=== PATIENT | male | born 1955 | race Caucasian/White ===

== ENCOUNTER 2019-09-04 16:15 | Emergency (ER) | payer BC, OTHER ==
[2019-09-04] MEDS ORDERED: IBUPROFEN 800 MG TABLET PO ONE (17:37)
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
[2019-09-04 19:29] VITALS: BP 149/88
== END 2019-09-04 19:27 | disposition home or self-care (01) ==
LOC: ER 16:15
DX: S16.1XXA Strain of muscle, fascia and tendon at neck level, initial encounter (principal); S39.012A Strain of muscle, fascia and tendon of lower back, initial encounter; M54.6 Pain in thoracic spine; V43.52XA Car driver injured in collision with other type car in traffic accident, initial encounter
CPT/HCPCS: 72050; 72070; 72110; 99283

== ENCOUNTER 2020-01-10 14:55 | Observation (INO) | payer BC, MEDICARE ==
[~2020-01-10 14:55] MED LIST: DEXAMETHASONE SOD PHOSPHATE INJ 4 MG/1 ML VIAL ONE; GLYCOPYRROLATE 1 MG/5 ML VIAL ONE; KETOROLAC TROMETHAMINE 60 MG/2 ML SDV ONE; LIDOCAINE 2% INJ-PF (20 MG/ML) 2 ML AMPUL ONE; NEOSTIGMINE METHYLSULFATE 10 MG/10 ML VIAL ONE; ONDANSETRON HCL INJ/PF 4 MG/2 ML SDV ONE; ROCURONIUM BROMIDE INJ 50 MG/5 ML VIAL IV ONE; SUCCINYLCHOLINE CHLORIDE INJ 200 MG/10 ML VIAL ONE
--- NOTE | 2020-01-10 15:32 | ER Document Report ---
ED Medical Screen (RME) - General Chief Complaint: Abdominal Pain Stated Complaint: ABDOMINAL PAIN Time Seen by Provider: 01/10/20 15:23 Primary Care Provider: GAY MENDOZA [Primary Care Provider] - Follow up as needed Mode of Arrival: Ambulatory Information source: Patient Notes: 64-year-old male presented to ED for complaint of nausea when he woke up this morning. He states he then rolled over into bed and his whole right side of his abdomen is extremely painful. He states he has not vomited but is felt like he needed to all day. He states he did eat half a bagel for breakfast and have a bowl of cereal about 1:00 but is not been able to eat anything else. He states his only past medical history is a knee scope and it was benign. He is alert oriented respirations regular nonlabored speaking in full sentences. I have greeted and performed a rapid initial assessment of this patient. A comprehensive ED assessment and evaluation of the patient, analysis of test results and completion of medical decision making process will be conducted by an additional ED providers. - Related Data Allergies/Adverse Reactions: No Known Allergies Allergy (Verified 01/10/20 15:21) Past Medical History - Past Medical History Cardiac Medical History: Reports: Hx Hypertension Physical Exam - Vital signs Vitals: Temp Pulse Resp BP Pulse Ox 99.5 F 85 20 136/80 H 97 01/10/20 15:08 01/10/20 15:08 01/10/20 15:08 01/10/20 15:08 01/10/20 15:08 Course - Vital Signs Vital signs: Temp Pulse Resp BP Pulse Ox 99.5 F 85 20 136/80 H 97 01/10/20 15:17 01/10/20 15:08 01/10/20 15:08 01/10/20 15:08 01/10/20 15:08 Doctor's Discharge - Discharge Referrals: GAY MENDOZA [Primary Care Provider] - Follow up as needed
[2020-01-10 15:53] LABS: ABSOLUTE EOSINOPHILS # (AUTO) 0.1 10^3/uL (0.0-0.6); ABSOLUTE LYMPHOCYTES (AUTO) 2.1 10^3/uL (0.5-4.7); ABSOLUTE MONOCYTES (AUTO) 0.8 10^3/uL (0.1-1.4); ABSOLUTE NEUT (AUTO) 7.2 10^3/uL (1.7-8.2); BASOPHILS % (AUTO) 0.2 % (0-2); EOSINOPHILS % (AUTO) 0.9 % (0-6); HEMATOCRIT 48.3 % (37.9-51.0); HEMOGLOBIN 16.7 g/dL (13.5-17.0); LYMPHOCYTES % (AUTO) 20.5 % (13-45); MEAN CORPUSCULAR HEMOGLOBIN 29.3 pg (27.0-33.4); MEAN CORPUSCULAR HGB CONC 34.7 g/dL (32.0-36.0); MEAN CORPUSCULAR VOLUME 84 fl (80-97); MONOCYTES % (AUTO) 7.6 % (3-13); PLATELET COUNT 206 10^3/uL (150-450); RED BLOOD COUNT 5.72 10^6/uL (4.35-5.55); RED CELL DISTRIBUTION WIDTH 13.8 % (11.5-14.0); SEGMENTED NEUTROPHILS % (AUTO) 70.8 % (42-78); TOTAL CELLS COUNTED % (AUTO) 100 %; WHITE BLOOD COUNT 10.2 10^3/uL (4.0-10.5)
[2020-01-10 16:14] LABS: ALBUMIN 4.7 g/dL (3.5-5.0); ALKALINE PHOSPHATASE 78 U/L (38-126); ANION GAP 8 (5-19); ASPARTATE AMINO TRANSFERASE 30 U/L (17-59); BILIRUBIN,TOTAL 0.6 mg/dL (0.2-1.3); BLOOD UREA NITROGEN 17 mg/dL (7-20); CARBON DIOXIDE 29 mmol/L (22-30); CHLORIDE 101 mmol/L (98-107); GLUCOSE 135 mg/dL (75-110); POTASSIUM 3.9 mmol/L (3.6-5.0)
[2020-01-10 16:23] LABS: APPEARANCE,URINE CLEAR; BILIRUBIN,URINE NEGATIVE (NEGATIVE); COLOR,URINE YELLOW; GLUCOSE, URINE NEGATIVE (NEGATIVE); KETONES,URINE NEGATIVE (NEGATIVE); LEUKOCYTE ESTERASE,URINE TRACE (NEGATIVE); NITRITE,URINE NEGATIVE (NEGATIVE); PROTEIN,URINE NEGATIVE (NEGATIVE); URINE SPECIFIC GRAVITY 1.008; UROBILINOGEN,URINE NEGATIVE mg/dL (<2.0)
--- NOTE | 2020-01-10 17:04 | RADIOLOGY REPORT (SQ) ---
EXAM DESCRIPTION: CT ABD/PELVIS WITH IV ONLY IMAGES COMPLETED DATE/TIME: 01/10/2020 4:43 pm REASON FOR STUDY: Lower and upper abdominal pain COMPARISON: None. TECHNIQUE: CT scan of the abdomen and pelvis performed using helical scanning technique with dynamic intravenous contrast injection. No oral contrast. Images reviewed with lung, soft tissue, and bone windows. Reconstructed coronal and sagittal MPR images reviewed. Delayed images for evaluation of the urinary system also acquired. All images stored on PACS. All CT scanners at this facility use dose modulation, iterative reconstruction, and/or weight based d osing when appropriate to reduce radiation dose to as low as reasonably achievable (ALARA). [facility]: Dose Right [facility]: CareDose [facility]: Dose Right [facility]: Teradose 4D [facility]: [place] CONTRAST TYPE AND DOSE: 99 mL Omnipaque 350- low osmolar. RENAL FUNCTION: GFR > 60. RADIATION DOSE: CT Rad equipment meets quality standard of care and radiation dose reduction techniq ues were employed. CTDIvol: 17.1 - 19.7 mGy. DLP: 2066 mGy-cm. LIMITATIONS: None. FINDINGS: LOWER CHEST: No acute findings. LIVER: There are several hypodense lesions scattered throughout segments 2 and 4 of the liver that me asure up to 13 mm in maximum diameter and likely represent cysts. The portal veins are patent. Ther e is no solid hepatic mass. SPLEEN: No splenomegaly or splenic mass. PANCREAS: No acute abnormality of the pancreas. GALLBLADDER: No abnormality that is apparent on CT. ADRENAL GLANDS: No mass or asymmetry. RIGHT KIDNEY AND URETER: No solid mass, hydronephrosis, nephrolithiasis, hydroureter or ureterolithia sis. LEFT KIDNEY AND URETER: 2.6 x 1.9 cm partially exophytic cyst in the lower pole of the kidney. There are several other subcentimeter hypodense lesions in the cortex of the lower pole that are considere d too small to characterize. There is no hydronephrosis, nephrolithiasis, hydroureter or ureterolith iasis. AORTA AND VESSELS: No aneurysm or dissection of the abdominal aorta. Variant accessory right inferio r hepatic vein. RETROPERITONEUM: No retroperitoneal adenopathy, hemorrhage or mass. BOWEL AND PERITONEAL CAVITY: No bowel obstruction, bowel wall thickening or pericolonic/ perienteric inflammation. No mesenteric adenopathy, free intraperitoneal fluid or mesenteric/ omental inflammati on. APPENDIX: The appendix is dilated measuring 12 mm in diameter. The wall of the appendix is thickened and there is mild stranding of the periappendiceal fat. PELVIS: The prostate gland is enlarged. ABDOMINAL WALL: Fat containing right inguinal hernia. BONES: No fracture or osseous lesion. OTHER: No other finding. IMPRESSION: 1. Dilated thick-walled appendix with mild stranding of the periappendiceal fat concerni ng for an acute early appendicitis. 2. Prostatomegaly. 3. Other secondary nonemergent findings as detailed above. TECHNICAL DOCUMENTATION: JOB ID: [id number] Quality ID # [id number]: Final reports with documentation of one or more dose reduction techniques (e.g., Au tomated exposure control, adjustment of the mA and/or kV according to patient size, use of iterative reconstruction technique) 2010 [employer]- All Rights Reserved Reading location - IP/workstation name: [email or web address]
--- NOTE | 2020-01-10 17:20 | ER Document Report ---
ED General - General Chief Complaint: Abdominal Pain Stated Complaint: ABDOMINAL PAIN Time Seen by Provider: 01/10/20 15:23 Primary Care Provider: GAY MENDOZA [Primary Care Provider] - Follow up as needed Mode of Arrival: Ambulatory Information source: Patient - [facility] Notes: Patient complains of right lower quadrant abdominal pain. He states that it started this morning. He states it progressively worsened throughout the day. He states it is sharp and moderate to severe in intensity. It is constant. Is worse with movement and better with rest. No significant radiation of the pain. No problems with urination or bowel movements. He has had some nausea. He is also had decreased appetite. He states he last ate at approximately 12:30 PM. - Related Data Allergies/Adverse Reactions: No Known Allergies Allergy (Verified 01/10/20 15:21) Past Medical History - General Information source: Patient - Social History Smoking Status: Never Smoker Frequency of alcohol use: None Drug Abuse: None Family History: Reviewed & Not Pertinent Patient has homicidal ideation: No - Past Medical History Cardiac Medical History: Reports: Hx Hypertension Review of Systems - Review of Systems Constitutional: denies: Chills, Fever Cardiovascular: denies: Chest pain, Palpitations Respiratory: denies: Cough, Short of breath -: Yes All other systems reviewed and negative Physical Exam - Vital signs Vitals: Temp Pulse Resp BP Pulse Ox 99.5 F 85 20 136/80 H 97 01/10/20 15:08 01/10/20 15:08 01/10/20 15:08 01/10/20 15:08 01/10/20 15:08 Interpretation: Normal - General General appearance: Appears well, Alert - HEENT Head: Normocephalic, Atraumatic Eyes: Normal Pupils: PERRL - Respiratory Respiratory status: No respiratory distress Chest status: Nontender Breath sounds: Normal Chest palpation: Normal - Cardiovascular Rhythm: Regular Heart sounds: Normal auscultation Murmur: No - Abdominal Inspection: Normal Distension: No distension Bowel sounds: Normal Tenderness: Tender - Patient has significant right lower quadrant tenderness to palpation with rebound and guarding. Organomegaly: No organomegaly - Back Back: Normal, Nontender - Extremities General upper extremity: Normal inspection, Nontender, Normal color, Normal ROM, Normal temperature General lower extremity: Normal inspection, Nontender, Normal color, Normal ROM, Normal temperature, Normal weight bearing. No: Shayy's sign - Neurological Neuro grossly intact: Yes Cognition: Normal Orientation: AAOx4 Narinder Coma Scale Eye Opening: Spontaneous Hope Coma Scale Verbal: Oriented Hope Coma Scale Motor: Obeys Commands Narinder Coma Scale Total: 15 Speech: Normal Motor strength normal: LUE, RUE, LLE, RLE Sensory: Normal - Psychological Associated symptoms: Normal affect, Normal mood - Skin Skin Temperature: Warm Skin Moisture: Dry Skin Color: Normal Course - Re-evaluation Re-evalutation: 01/10/20 17:20 Patient presents with right lower quadrant abdominal pain. CT shows questionable early appendicitis. Labs show an elevated white blood cell count. Exam is consistent with an appendicitis as well. I have spoke with the surgeon Dr. Naylor who is asked me to start antibiotics and he will see the patient when he is done with his present case. - Vital Signs Vital signs: Temp Pulse Resp BP Pulse Ox 99.5 F 85 20 136/80 H 97 01/10/20 15:17 01/10/20 15:08 01/10/20 15:08 01/10/20 15:08 01/10/20 15:08 - Laboratory Result Diagrams: 01/10/20 15:34 01/10/20 15:34 Laboratory results interpreted by me: 01/10/20 01/10/20 01/10/20 15:34 15:34 15:44 RBC 5.72 H Creatinine 1.27 H Est GFR (MDRD) Non-Af 57 L Glucose 135 H Ur Leukocyte Esterase TRACE H Urine Ascorbic Acid 20 H - Diagnostic Test Radiology reviewed: Image reviewed, Reports reviewed Discharge - Discharge Clinical Impression: Acute appendicitis Qualifiers: Acute appendicitis type: with localized peritonitis Appendicitis gangrene presence: without gangrene Appendicitis perforation presence: without perforation Appendicitis abscess presence: without abscess Qualified Code(s): K35.30 - Acute appendicitis with localized peritonitis, without perforation or gangrene Condition: Fair Disposition: ADMITTED INPATIENT Admitting Provider: Surgicalist Unit Admitted: OR Referrals: LOCALMD,NO [Primary Care Provider] - Follow up as needed
--- NOTE | 2020-01-10 17:57 | RADIOLOGY REPORT (SQ) ---
EXAM DESCRIPTION: CHEST 2 VIEWS IMAGES COMPLETED DATE/TIME: 01/10/2020 5:28 pm REASON FOR STUDY: pre op COMPARISON: None. EXAM PARAMETERS: NUMBER OF VIEWS: two views TECHNIQUE: Digital Frontal and Lateral radiographic views of the chest acquired. RADIATION DOSE: NA LIMITATIONS: none FINDINGS: LUNGS AND PLEURA: No opacities, masses or pneumothorax. No pleural effusion. MEDIASTINUM AND HILAR STRUCTURES: No masses or contour abnormalities. HEART AND VASCULAR STRUCTURES: Heart normal size. No evidence for failure. BONES: No acute findings. HARDWARE: None in the chest. OTHER: No other significant finding. IMPRESSION: 1. NO ACUTE RADIOGRAPHIC FINDING IN THE CHEST. TECHNICAL DOCUMENTATION: JOB ID: [id number] 2010 [employer]- All Rights Reserved Reading location - IP/workstation name: [email or web address]
[2020-01-10] MEDS ORDERED: BUPIVACAINE HCL 0.25 % INJ/PF (2.5 MG/1 ML) 30 ML VIAL ONE (19:06)
[2020-01-10] MEDS ORDERED: MIDAZOLAM 2 MG/2 ML INJ ONE (19:24)
[2020-01-10] MEDS ORDERED: FENTANYL CITRATE INJ/PF 100 MCG/2 ML AMPUL ONE (19:24)
[2020-01-10] MEDS ORDERED: PROPOFOL INJ 200 MG/20 ML VIAL IV ONE (19:25)
[2020-01-10] MEDS ORDERED: MORPHINE SULFATE 10 MG/ML INJ ONE (19:25)
[2020-01-10] MEDS ORDERED: CEFOXITIN 1 GM/D5W RTU 2 GM/100 ML RTUPB IV ONE (19:31)
[2020-01-10] MEDS ORDERED: MORPHINE SULFATE 10 MG/ML INJ IV PRN ×2 (20:36→20:43)
[2020-01-10] MEDS ORDERED: HYDROCODONE/ACETAMINOPHEN 10-325 MG TABLET PO PRN (20:38)
[2020-01-10] MEDS ORDERED: OXYCODONE-ACETAMINOPHEN 5-325 MG TABLET PO PRN ×2 (20:43)
[2020-01-10] MEDS ORDERED: PROMETHAZINE HCL INJ 25 MG/1 ML VIAL IV PRN (20:43)
[2020-01-10] MEDS ORDERED: FENTANYL CITRATE INJ/PF 100 MCG/2 ML AMPUL IV PRN ×3 (20:43)
[2020-01-10] MEDS ORDERED: ONDANSETRON HCL INJ/PF 4 MG/2 ML SDV IV PRN (20:43)
[2020-01-10] MEDS ORDERED: MEPERIDINE HCL/PF INJ 25 MG/1 ML DISP.SYRIN IV PRN (20:43)
[2020-01-10] MEDS ORDERED: DIPHENHYDRAMINE HCL 50 MG/ML VIAL IV PRN (20:43)
--- NOTE | 2020-01-10 20:44 | Operative Report ---
Nonrecallable Operative Report DATE OF SURGERY: 01/10/20 PREOPERATIVE DIAGNOSIS: acute appendicitis POSTOPERATIVE DIAGNOSIS: Acute nonperforated appendicitis OPERATION: Laparoscopic appendectomy SURGEON: KEVIN GARCIA ANESTHESIA: GA TISSUE REMOVED OR ALTERED: Appendix COMPLICATIONS: None apparent ESTIMATED BLOOD LOSS: Minimal PROCEDURE: Drains/implants: None. Procedure in detail: After informed consent was obtained, the patient was brought to the operating room and laid in the supine position. The area of the abdomen was prepped and draped in a normal sterile fashion. A supraumbilical incision was created with a 15 blade scalpel. Dissection was carried through the subcutaneous tissues using sharp and blunt dissection. The linea alba fascia was incised sharply, the abdomen was entered sharply. The balloon trocar was inserted, and pneumoperitoneum was achieved. A 5 mm trocar was then placed in the suprapubic midline under direct laparoscopic visualization. Another left lower quadrant trocar was placed in similar fashion. Atraumatic graspers were placed through the 5 mm ports. The appendix was identified. It was retracted anteriorly. The mesoappendix was taken down using the harmonic scalpel. 2 PDS Endoloops were secured around the base of the appendix. The appendix was then amputated using the harmonic scalpel. It was then placed into an Endo Catch bag and pulled out through the umbilicus. The camera was reinserted. The right lower quadrant was inspected, and found to be hemostatic. Next, the 5 mm trochars were removed under direct laparoscopic visualization. The supraumbilical trocar was removed, and pneumoperitoneum was relieved. The supraumbilical fascia was closed using 0 Vicryl suture in [id number] fashion. The overlying skin was closed in 4-0 Vicryl Rapide suture in subcuticular fashion. Dressings were placed, and the procedure was concluded. All sponge, instrument, and needle counts were correct x2. Condition: Stable.
[2020-01-10] MEDS: FAMOTIDINE 20 MG TABLET PO SCH (22:49)
[2020-01-11] MEDS: ONDANSETRON HCL INJ/PF 4 MG/2 ML SDV IV PRN ×2 (06:35→08:27)
--- NOTE | 2020-01-11 06:44 | PDOC H&P ---
History of Present Illness Admission Date/PCP: 01/10/20 17:58 Patient complains of: right lower quadrant pain History of Present Illness: GIANNI TIPTON is a 64 year old male with a 1 day h/o right lower quadrant pain. It woke him up from sleep this morning and continued to worsen throughout the day. He describes his pain as sharp and stabbing. He rates it 3 out of 10. He reports nausea. His pain is located in the right lower quadrant. It does not radiate. He denies diarrhea, constipation, fevers, chills, headache, chest pain, shortness of breath, headache, melena, hematochezia, hematemesis, blurry vision, orthostasis, rash. Past Medical History Cardiac Medical History: Reports: Hypertension Social History Smoking Status: Never Smoker Frequency of Alcohol Use: None Hx Recreational Drug Use: No Hx Prescription Drug Abuse: No Family History Family History: Reviewed & Not Pertinent Parental Family History Reviewed: Yes Children Family History Reviewed: Yes Sibling(s) Family History Reviewed.: Yes Medication/Allergy Home Medications: Cyclobenzaprine HCl [Flexeril 10 mg Tablet] 10 mg PO TIDP PRN #15 tab 09/04/19 Ibuprofen [Motrin 600 mg Tablet] 600 mg PO Q8HP PRN #14 tablet 09/04/19 Allergies/Adverse Reactions: No Known Allergies Allergy (Verified 01/10/20 15:21) Review of Systems Constitutional: ABSENT: anorexia, chills, fatigue, fever(s), weakness Eyes: ABSENT: visual disturbances Ears: ABSENT: hearing changes Nose, Mouth, and Throat: ABSENT: sore throat Cardiovascular: ABSENT: chest pain Respiratory: ABSENT: cough, dyspnea Gastrointestinal: PRESENT: abdominal pain, nausea. ABSENT: hematemesis, hem atochezia, melena, vomiting Genitourinary: ABSENT: dysuria Musculoskeletal: ABSENT: back pain Integumentary: ABSENT: pruritus, rash Neurological: ABSENT: confusion, convulsions Psychiatric: ABSENT: anxiety, depression Endocrine: ABSENT: cold intolerance, heat intolerance Hematologic/Lymphatic: ABSENT: easy bleeding, easy bruising Physical Exam Vital Signs: Temp Pulse Resp BP Pulse Ox 99.5 F 85 20 136/80 H 97 01/10/20 15:17 01/10/20 15:08 01/10/20 15:08 01/10/20 15:08 01/10/20 15:08 Intake & Output 01/09/20 01/10/20 01/11/20 06:59 06:59 06:59 Weight 108.8 kg General appearance: PRESENT: no acute distress, cooperative, other - Overweight Head exam: PRESENT: atraumatic, normocephalic Eye exam: PRESENT: EOMI, PERRLA. ABSENT: scleral icterus Mouth exam: PRESENT: moist, neck supple Neck exam: ABSENT: meningismus, tenderness, thyromegaly, tracheal deviation Respiratory exam: PRESENT: unlabored. ABSENT: chest wall tenderness, tachypnea, wheezes Cardiovascular exam: PRESENT: RRR. ABSENT: tachycardia Vascular exam: ABSENT: pallor GI/Abdominal exam: PRESENT: guarding - Right lower quadrant, hernia - Small umbilical hernia present, nontender., soft, tenderness - right lower quadrant. ABSENT: distended Rectal exam: PRESENT: deferred Extremities exam: ABSENT: clubbing Musculoskeletal exam: ABSENT: deformity Neurological exam: PRESENT: alert, awake, oriented to person, oriented to place, oriented to time, oriented to situation, CN II-XII grossly intact. ABSENT: motor sensory deficit Psychiatric exam: ABSENT: agitated, anxious, depressed Focused psych exam: ABSENT: delusional Skin exam: ABSENT: cyanosis, erythema, jaundice Results Laboratory Results: 01/10/20 15:34 01/10/20 15:34 01/10/20 01/10/20 01/10/20 15:34 15:34 15:44 WBC 10.2 RBC 5.72 H Hgb 16.7 Hct 48.3 MCV 84 MCH 29.3 MCHC 34.7 RDW 13.8 Plt Count 206 Seg Neutrophils % 70.8 Sodium 137.8 Potassium 3.9 Chloride 101 Carbon Dioxide 29 Anion Gap 8 BUN 17 Creatinine 1.27 H Est GFR ( Amer) > 60 Glucose 135 H Calcium 10.0 Total Bilirubin 0.6 AST 30 Alkaline Phosphatase 78 Total Protein 8.0 Albumin 4.7 Lipase 90.4 Urine Color YELLOW Urine Appearance CLEAR Urine pH 6.0 Ur Specific [place] 1.008 Urine Protein NEGATIVE Urine Glucose (UA) NEGATIVE Urine Ketones NEGATIVE Urine Blood NEGATIVE Urine Nitrite NEGATIVE Ur Leukocyte Esterase TRACE H Urine WBC (Auto) 1 Impressions: Abdomen/Pelvis CT 01/10/20 15:29 IMPRESSION: 1. Dilated thick-walled appendix with mild stranding of the periappendiceal fat concerning for an acute early appendicitis. 2. Prostatomegaly. 3. Other secondary nonemergent findings as detailed above. Chest X-Ray 01/10/20 17:22 IMPRESSION: 1. NO ACUTE RADIOGRAPHIC FINDING IN THE CHEST. Assessment & Plan - Diagnosis (1) Acute appendicitis Qualifiers: Acute appendicitis type: with localized peritonitis Appendicitis gangrene presence: without gangrene Appendicitis perforation presence: without perforation Appendicitis abscess presence: without abscess Qualified Code(s): K35.30 - Acute appendicitis with localized peritonitis, without perforation or gangrene Is this a current diagnosis for this admission?: Yes - Plan Summary Plan Summary: This is a 64-year-old male with a history, physical, and CT scan consistent with acute appendicitis. I discussed both operative and nonoperative management strategies. The patient has chosen operative therapy. Plan for urgent laparoscopic appendectomy. Risks/benefits discussed, informed consent obtained, and all questions answered.
--- NOTE | 2020-01-11 08:03 | EKG REPORT ---
SEVERITY:- NORMAL ECG - SINUS RHYTHM : Confirmed by: Ceci Horton MD 11-Jan-2020 08:02:14
[2020-01-11] MEDS: IBUPROFEN 800 MG TABLET PO SCH ×2 (08:18→12:00)
--- NOTE | 2020-01-11 09:41 | PDOC PROGRESS REPORT ---
Subjective Progress Note for:: 01/11/20 Reason For Visit: ACUTE APPENDICITIS Patient had a reasonable night, voided, tolerated some liquids, however this morning he is belching. Physical Exam Vital Signs: Temp Pulse Resp BP Pulse Ox 97.7 F 76 17 136/82 H 95 01/11/20 07:22 01/11/20 07:22 01/11/20 07:22 01/11/20 07:22 01/11/20 07:22 Intake & Output 01/10/20 01/11/20 01/12/20 06:59 06:59 06:59 Intake Total 1050 Output Total 25 Balance 1025 Weight 108.8 kg General appearance: PRESENT: other - Mild distress, has emesis bag in hand GI/Abdominal exam: PRESENT: other - Abdomen examined; operative incisions covered. The abdomen is soft a little bit distended. No peritoneal signs, no rigidity. Results Laboratory Results: 01/10/20 15:34 01/10/20 15:34 01/10/20 01/10/20 01/10/20 15:34 15:34 15:44 WBC 10.2 RBC 5.72 H Hgb 16.7 Hct 48.3 MCV 84 MCH 29.3 MCHC 34.7 RDW 13.8 Plt Count 206 Seg Neutrophils % 70.8 Sodium 137.8 Potassium 3.9 Chloride 101 Carbon Dioxide 29 Anion Gap 8 BUN 17 Creatinine 1.27 H Est GFR ( Amer) > 60 Glucose 135 H Calcium 10.0 Total Bilirubin 0.6 AST 30 Alkaline Phosphatase 78 Total Protein 8.0 Albumin 4.7 Lipase 90.4 Urine Color YELLOW Urine Appearance CLEAR Urine pH 6.0 Ur Specific [place] 1.008 Urine Protein NEGATIVE Urine Glucose (UA) NEGATIVE Urine Ketones NEGATIVE Urine Blood NEGATIVE Urine Nitrite NEGATIVE Ur Leukocyte Esterase TRACE H Urine WBC (Auto) 1 Impressions: Abdomen/Pelvis CT 01/10/20 15:29 IMPRESSION: 1. Dilated thick-walled appendix with mild stranding of the periappendiceal fat concerning for an acute early appendicitis. 2. Prostatomegaly. 3. Other secondary nonemergent findings as detailed above. Chest X-Ray 01/10/20 17:22 IMPRESSION: 1. NO ACUTE RADIOGRAPHIC FINDING IN THE CHEST. Assessment & Plan - Diagnosis (1) Acute appendicitis Qualifiers: Acute appendicitis type: with localized peritonitis Appendicitis gangrene presence: without gangrene Appendicitis perforation presence: without perforation Appendicitis abscess presence: without abscess Qualified Code(s): K35.30 - Acute appendicitis with localized peritonitis, without perforation or gangrene Is this a current diagnosis for this admission?: Yes Plan: Impression: 1 day status post laparoscopic appendectomy, doing well with some postop nausea; likely mild ileus Recommendations: 1. get up and out of bed, ambulate. 2. We will reassess patient later today; hopefully can be discharged home. 3. Discussed the above with the nursing staff. - Time Time Spent: 30 to 50 Minutes
[2020-01-11] MEDS: FAMOTIDINE 20 MG TABLET PO SCH (09:57)
--- NOTE | 2020-01-11 12:22 | PDOC DISCHARGE SUMMARY ---
General - Admit/Disc Date/PCP Admission Date/Primary Care Provider: 01/10/20 17:58 Discharge Date: 01/11/20 - Discharge Diagnosis Final Diagnosis: Acute appendicitis - Assessment Summary: Patient is 64-year-old white male presents emergency department complaining of abdominal pain right lower quadrant tenderness; he was found by CT scan imaging to have findings consistent with acute appendicitis. Patient was admitted to the surgical service, kept n.p.o. and then taken to the operating room by Dr. Naylor where he underwent laparoscopic appendectomy. He is found to have an ac utely inflamed appendix. The patient tolerated procedure well, had no post procedure complications, was started on a diet and voided without difficulty. The following morning he had some nausea but this resolved after ambulating. Afternoon of the first postoperative day he was felt to receive maximum benefit from hospitalization was discharged home. He will follow-up with [facility] in 1 to 2 weeks, resume preoperative medications, diet, activity, and take Tylenol alternating with Motrin as needed pain. - Additional Information Resuscitation Status: Full Code Discharge Activity: Activity As Tolerated Referrals: KEVIN NAYLOR MD [ACTIVE STAFF] - (01/09 S/P LAP APPY) Home Medications: Hydrochlorothiazide [Hydrodiuril 25 mg Tablet] 25 mg PO DAILY 01/11/20 Lisinopril [Zestril] 40 mg PO DAILY 01/11/20 History of Present Illiness History of Present Illness: GIANNI TIPTON is a 64 year old male Physical Exam Vital Signs: Temp Pulse Resp BP Pulse Ox 97.8 F 73 16 130/80 H 97 01/11/20 11:15 01/11/20 11:15 01/11/20 11:15 01/11/20 11:15 01/11/20 11:15 Intake & Output 01/10/20 01/11/20 01/12/20 06:59 06:59 06:59 Intake Total 1050 Output Total 25 Balance 1025 Weight 108.8 kg Results Laboratory Results: WBC 10.2 10^3/uL (4.0-10.5) 01/10/20 15:34 RBC 5.72 10^6/uL (4.35-5.55) H 01/10/20 15:34 Hgb 16.7 g/dL (13.5-17.0) 01/10/20 15:34 Hct 48.3 % (37.9-51.0) 01/10/20 15:34 MCV 84 fl (80-97) 01/10/20 15:34 MCH 29.3 pg (27.0-33.4) 01/10/20 15:34 MCHC 34.7 g/dL (32.0-36.0) 01/10/20 15:34 RDW 13.8 % (11.5-14.0) 01/10/20 15:34 Plt Count 206 10^3/uL (150-450) 01/10/20 15:34 Lymph % (Auto) 20.5 % (13-45) 01/10/20 15:34 [place] % (Auto) 7.6 % (3-13) 01/10/20 15:34 Eos % (Auto) 0.9 % (0-6) 01/10/20 15:34 Baso % (Auto) 0.2 % (0-2) 01/10/20 15:34 Absolute Neuts (auto) 7.2 10^3/uL (1.7-8.2) 01/10/20 15:34 Absolute Lymphs (auto) 2.1 10^3/uL (0.5-4.7) 01/10/20 15:34 Absolute Monos (auto) 0.8 10^3/uL (0.1-1.4) 01/10/20 15:34 Absolute Eos (auto) 0.1 10^3/uL (0.0-0.6) 01/10/20 15:34 Absolute Basos (auto) 0.0 10^3/uL (0.0-0.2) 01/10/20 15:34 Seg Neutrophils % 70.8 % (42-78) 01/10/20 15:34 Sodium 137.8 mmol/L (137-145) 01/10/20 15:34 Potassium 3.9 mmol/L (3.6-5.0) 01/10/20 15:34 Chloride 101 mmol/L (98-107) 01/10/20 15:34 Carbon Dioxide 29 mmol/L (22-30) 01/10/20 15:34 Anion Gap 8 (5-19) 01/10/20 15:34 BUN 17 mg/dL (7-20) 01/10/20 15:34 Creatinine 1.27 mg/dL (0.52-1.25) H 01/10/20 15:34 Est GFR ( Amer) > 60 (>60) 01/10/20 15:34 Est GFR (MDRD) Non-Af 57 (>60) L 01/10/20 15:34 Glucose 135 mg/dL (75-110) H 01/10/20 15:34 Calcium 10.0 mg/dL (8.4-10.2) 01/10/20 15:34 Total Bilirubin 0.6 mg/dL (0.2-1.3) 01/10/20 15:34 Direct Bilirubin 0.0 mg/dL (0.0-0.4) 01/10/20 15:34 Neonat Total Bilirubin Not Reportable 01/10/20 15:34 Neonat Direct Bilirubin Not Reportable 01/10/20 15:34 Neonat Indirect Bili Not Reportable 01/10/20 15:34 AST 30 U/L (17-59) 01/10/20 15:34 ALT 39 U/L (<50) 01/10/20 15:34 Alkaline Phosphatase 78 U/L (38-126) 01/10/20 15:34 Total Protein 8.0 g/dL (6.3-8.2) 01/10/20 15:34 Albumin 4.7 g/dL (3.5-5.0) 01/10/20 15:34 Lipase 90.4 U/L (23-300) 01/10/20 15:34 Urine Color YELLOW 01/10/20 15:44 Urine Appearance CLEAR 01/10/20 15:44 Urine pH 6.0 (5.0-9.0) 01/10/20 15:44 Ur Specific [place] 1.008 01/10/20 15:44 Urine Protein NEGATIVE mg/dL (NEGATIVE) 01/10/20 15:44 Urine Glucose (UA) NEGATIVE mg/dL (NEGATIVE) 01/10/20 15:44 Urine Ketones NEGATIVE mg/dL (NEGATIVE) 01/10/20 15:44 Urine Blood NEGATIVE (NEGATIVE) 01/10/20 15:44 Urine Nitrite NEGATIVE (NEGATIVE) 01/10/20 15:44 Urine Bilirubin NEGATIVE (NEGATIVE) 01/10/20 15:44 Urine Urobilinogen NEGATIVE mg/dL (<2.0) 01/10/20 15:44 Ur Leukocyte Esterase TRACE (NEGATIVE) H 01/10/20 15:44 Urine WBC (Auto) 1 /HPF 01/10/20 15:44 U Hyaline Cast (Auto) 1 /LPF 01/10/20 15:44 Urine Mucus (Auto) RARE /LPF 01/10/20 15:44 Urine Ascorbic Acid 20 (NEGATIVE) H 01/10/20 15:44 SARS-CoV-2 (PCR) NEGATIVE (NEGATIVE) 01/10/20 17:28 Impressions: Abdomen/Pelvis CT 01/10/20 15:29 IMPRESSION: 1. Dilated thick-walled appendix with mild stranding of the periappendiceal fat concerning for an acute early appendicitis. 2. Prostatomegaly. 3. Other secondary nonemergent findings as detailed above. Chest X-Ray 01/10/20 17:22 IMPRESSION: 1. NO ACUTE RADIOGRAPHIC FINDING IN THE CHEST.
[2020-01-11 13:20] VITALS: BP 134/79
== END 2020-01-11 14:25 | disposition home or self-care (01) ==
LOC: ER 14:55 → INTOOBSV 17:58 → EH 17:58 → 4N 21:08
PROVIDERS: ATTEND Surgery
DX: K35.30 Acute appendicitis with localized peritonitis, without perforation or gangrene (principal); K42.9 Umbilical hernia without obstruction or gangrene; K91.89 Other postprocedural complications and disorders of digestive system; R11.0 Nausea; Y83.6 Removal of other organ (partial) (total) as the cause of abnormal reaction of the patient, or of later complication, without mention of misadventure at the time of the procedure; R14.2 Eructation; E66.3 Overweight; Z03.818 Encounter for observation for suspected exposure to other biological agents ruled out; I10 Essential (primary) hypertension; Z79.899 Other long term (current) drug therapy
CPT/HCPCS: 44970; 93005; 99285; 36415; 83690; 85025; 87635; 80053; 81001; 71046; 74177; 94799; 93010; 99140; 00840; J2250; J3490 ×3; J1100; J1885; J3010; J0694; J2270; J2710; J0330; J2405 ×2; J2704; C9803; 840